=== PATIENT | female | born 2000 | race American Indian/Alaskan Native ===

== ENCOUNTER 2020-03-16 19:29 | Outpatient (CLI) | payer OTHER ==
[2020-03-16 19:43] VITALS: BP 120/69
[2020-03-16 20:14] LABS: Bacteria,Urine 1+ /HPF (Negative); Bilirubin,Urine SM (Negative); Blood,Urine NEG (Negative); Color,Urine Amber (Yellow); Mucus,Urine 3+ /HPF
[2020-03-16] MEDS ORDERED: DOCUSATE SODIUM 100 MG CAP PO ONE (21:28)
== END 2020-03-16 20:32 | disposition home or self-care (01) ==
LOC: TRG 19:29 → APU 19:30 → TRG 20:32
PROVIDERS: ATTEND Obstetrics & Gynecology
DX: O26.893 Other specified pregnancy related conditions, third trimester (principal); R10.2 Pelvic and perineal pain; Z3A.35 35 weeks gestation of pregnancy
CPT/HCPCS: 59025; 81001

== ENCOUNTER 2020-04-07 15:08 | Inpatient (IN) | payer OTHER ==
[2020-04-07] MEDS ORDERED: DINOPROSTONE 10 MG VAG SUPP VG ONE (17:45)
[2020-04-07] MEDS ORDERED: TERBUTALINE 1 MG/1 ML INJ IVP PRN (17:58)
[2020-04-07] MEDS ORDERED: MINERAL OIL 30 ML ORAL LIQD PO PRN (17:58)
[2020-04-07] MEDS ORDERED: LIDOCAINE (2%) 20 MG/1 ML VIAL 20 ML MDV INFILTRATI ONE (17:58)
[2020-04-07] MEDS ORDERED: TERBUTALINE 1 MG/1 ML INJ SUB-Q PRN (17:58)
[2020-04-07] MEDS ORDERED: AMPICILLIN/NS 2 GM/100 ML 2 GM/100 ML BAG IV ONE (17:58)
[2020-04-07] MEDS ORDERED: ePHEDrine SULFATE 50 MG/1 ML INJ IV PRN (17:58)
[2020-04-07] MEDS ORDERED: OXYTOCIN 20 UNIT/1000ML DRIP 20 UNITS/1,000 ML BAG IV SCH (18:00)
--- NOTE | 2020-04-07 18:07 | History and Physical Report ---
History of Present Illness Date of examination: 04/07/20 Date of admission: 04/07/20 15:08 Chief complaint: IOL History of present illness: 19y/o @ 38+2 weeks presents for IOL for mild preeclampsia. Patient had a 24hr urine protein with elevated levels of 434mg. She has been experiencing labile blood pressures. The patient initiated care in the first trimester. Her course is complicated by STD exposure and +GBS. Past History Past Medical History: no pertinent history Past Surgical History: no surgical history [employer] History: chlamydia Social history: single - Obstetrical History Expected Date of Delivery: 04/19/20 Actual Gestation: 38 Week(s) 2 Day(s) : 1 Para: 0 Hx # Term Pregnancies: 0 Number of Pregnancies: 0 Spontaneous Abortions: 0 Induced : 0 Number of Living Children: 0 Medications and Allergies Allergies Allergy/AdvReac Type Severity Reaction Status Date / Time No Known Allergies Allergy Unverified 02/06/20 11:38 Home Medications Medication Instructions Recorded Confirmed Last Taken Type Vitamin 1 tab PO DAILY 04/07/20 04/07/20 04/06/20 History Active Meds: Active Medications Butorphanol Tartrate (Stadol) 2 mg IV Q2H PRN PRN Reason: Pain , Severe (7-10) Ephedrine Sulfate (Ephedrine Sulfate) 10 mg IV Q2M PRN PRN Reason: Hypotension Oxytocin/Sodium Chloride (Pitocin/Ns 20 Unit/1000ml Drip) 20 units in 1,000 mls @ 125 mls/hr IV DIRECT GENE Oxytocin/Sodium Chloride (Pitocin/Ns 30 Unit/500ml) 30 units in 500 mls @ 4 mls/hr IV TITR GENE; Protocol Lactated Ringer's (Lactated Ringers) 1,000 mls @ 125 mls/hr IV DIRECT GENE Ampicillin Sodium (Ampicillin/Ns 1 Gm/50 Ml) 1 gm in 50 mls @ 100 mls/hr IV Q4HR GENE; Protocol Ampicillin Sodium (Ampicillin/Ns 2 Gm/100 Ml) 2 gm in 100 mls @ 100 mls/hr IV ONCE ONE; Protocol Stop: 04/07/20 18:57 Lidocaine (Xylocaine 2%) 20 ml INFILTRATI ONCE ONE Stop: 04/07/20 17:59 Mineral Oil (Mineral Oil) 30 ml PO QHS PRN PRN Reason: Constipation Misoprostol (Cytotec) 25 mcg VAGINAL Q4H GENE Terbutaline Sulfate (Brethine) 0.25 mg SUB-Q ONCE PRN PRN Reason: Hyperstimulation/Hypertonicity Terbutaline Sulfate (Brethine) 0.25 mg IVP ONCE PRN PRN Reason: Hyperstimulation/Hypertonicity Review of Systems All systems: negative Genitourinary: no leakage of fluid, no contractions - Vital Signs Vital signs: Vital Signs Temp Pulse Resp BP 98.0 F 107 H 16 139/79 04/07/20 15:35 04/07/20 15:35 04/07/20 15:35 04/07/20 15:35 Temp Pulse Resp BP Pulse Ox 98.0 F 109 H 16 127/57 100 04/07/20 15:35 04/07/20 18:01 04/07/20 15:35 04/07/20 18:01 04/07/20 17:59 - Physical Exam Breasts: Positive: deferred Cardiovascular: Regular rate Lungs: Positive: Clear to auscultation Abdomen: Positive: normal appearance - Obstetrical Cervical Dilatation: 0.5 Results All other labs normal. Assessment and Plan - Patient Problems (1) Mild preeclampsia Current Visit: Yes Status: Acute Plan to address problem: admit for induction of labor
[2020-04-07 19:14] LABS: Hematocrit 34.5 % (30.3-42.9); Hemoglobin 11.6 gm/dl (10.1-14.3); Mean Corpuscular HGB Conc 34 % (30-34); Mean Corpuscular Volume 96 fl (79-97); Platelet Count 175 K/mm3 (140-440); Red Blood Count 3.59 M/mm3 (3.65-5.03)
[2020-04-07 19:42] LABS: Alanine Aminotransferase 23 units/L (7-56); Albumin 3.9 g/dL (3.9-5); BUN/Creatinine Ratio 18; Blood Urea Nitrogen 7 mg/dL (7-17); Calcium 9.9 mg/dL (8.4-10.2); Hemolysis Index 42; Uric Acid 4.2 mg/dL (3.5-7.6)
[2020-04-07] MEDS: miSOPROStol 25 MCG TAB VG SCH (20:35)
[2020-04-07] MEDS: LACTATED RINGERS 1,000 ML IV SCH (20:35)
[2020-04-08] MEDS: miSOPROStol 25 MCG TAB VG SCH ×3 (00:35→09:00)
[2020-04-08] MEDS: LACTATED RINGERS 1,000 ML IV SCH ×2 (04:35→18:51)
--- NOTE | 2020-04-08 08:13 | Progress Note ---
Assessment and Plan A: IUP at 38w3d Mild Preeclampsia Obesity P: Continue induction of labor Closely monitor clinical status Subjective - Subjective Date of service: 04/08/20 Principal diagnosis: induction of labor for mild preeclampsia at term Interval history: Pt without complaints. No PIH symptoms. Patient reports: no new complaints Objective - Vital Signs Vital Signs: Vital Signs - 12hr 04/07/20 04/07/20 04/07/20 20:16 20:17 20:22 Temperature Pulse Rate 93 H 93 H 93 H Respiratory Rate Blood Pressure 114/56 O2 Sat by Pulse 98 98 Oximetry 04/07/20 04/07/20 04/07/20 20:27 20:29 20:32 Temperature Pulse Rate 95 H 96 H Respiratory Rate Blood Pressure O2 Sat by Pulse 99 69 L 100 Oximetry 04/07/20 04/07/20 04/07/20 20:37 20:42 20:47 Temperature Pulse Rate 98 H 93 H 98 H Respiratory Rate Blood Pressure O2 Sat by Pulse 100 100 97 Oximetry 04/07/20 04/07/20 04/07/20 20:52 20:57 21:02 Temperature Pulse Rate 94 H 94 H 94 H Respiratory Rate Blood Pressure O2 Sat by Pulse 100 97 98 Oximetry 04/07/20 04/07/20 04/07/20 21:07 21:12 21:17 Temperature Pulse Rate 94 H 95 H 93 H Respiratory Rate Blood Pressure O2 Sat by Pulse 97 97 99 Oximetry 04/07/20 04/07/20 04/07/20 21:18 21:22 21:27 Temperature Pulse Rate 89 96 H 97 H Respiratory Rate Blood Pressure 120/61 O2 Sat by Pulse 99 98 Oximetry 04/07/20 04/07/20 04/07/20 21:32 21:37 21:42 Temperature Pulse Rate 95 H 94 H 94 H Respiratory Rate Blood Pressure O2 Sat by Pulse 99 98 99 Oximetry 04/07/20 04/07/20 04/07/20 21:47 21:52 21:57 Temperature Pulse Rate 87 97 H 89 Respiratory Rate Blood Pressure O2 Sat by Pulse 97 99 98 Oximetry 04/07/20 04/07/20 04/07/20 22:02 22:07 22:12 Temperature Pulse Rate 95 H 95 H 92 H Respiratory Rate Blood Pressure O2 Sat by Pulse 98 98 97 Oximetry 04/07/20 04/07/20 04/07/20 22:17 22:18 22:22 Temperature Pulse Rate 102 H 94 H 87 Respiratory Rate Blood Pressure 117/69 O2 Sat by Pulse 98 98 Oximetry 04/07/20 04/07/20 04/07/20 22:27 22:32 22:37 Temperature Pulse Rate 88 98 H 91 H Respiratory Rate Blood Pressure O2 Sat by Pulse 98 98 97 Oximetry 04/07/20 04/07/20 04/07/20 22:42 22:47 22:52 Temperature Pulse Rate 92 H 94 H 93 H Respiratory Rate Blood Pressure O2 Sat by Pulse 97 98 97 Oximetry 04/07/20 04/07/20 04/07/20 22:57 23:02 23:07 Temperature Pulse Rate 84 89 96 H Respiratory Rate Blood Pressure O2 Sat by Pulse 98 96 97 Oximetry 04/07/20 04/07/20 04/07/20 23:12 23:17 23:22 Temperature Pulse Rate 88 88 85 Respiratory Rate Blood Pressure 118/61 O2 Sat by Pulse 97 96 99 Oximetry 04/07/20 04/07/20 04/07/20 23:27 23:32 23:37 Temperature Pulse Rate 93 H 89 85 Respiratory Rate Blood Pressure O2 Sat by Pulse 97 99 98 Oximetry 04/07/20 04/07/20 04/07/20 23:42 23:47 23:52 Temperature Pulse Rate 86 81 78 Respiratory Rate Blood Pressure O2 Sat by Pulse 100 94 100 Oximetry 04/07/20 04/08/20 04/08/20 23:57 00:02 00:07 Temperature Pulse Rate 75 80 85 Respiratory Rate Blood Pressure O2 Sat by Pulse 99 99 98 Oximetry 04/08/20 04/08/20 04/08/20 00:12 00:17 00:22 Temperature Pulse Rate 84 83 79 Respiratory Rate Blood Pressure 109/50 O2 Sat by Pulse 97 98 99 Oximetry 04/08/20 04/08/20 04/08/20 00:25 00:27 00:32 Temperature 98.3 F Pulse Rate 84 89 Respiratory 18 Rate Blood Pressure O2 Sat by Pulse 96 100 Oximetry 04/08/20 04/08/20 04/08/20 00:37 00:42 00:47 Temperature Pulse Rate 89 84 84 Respiratory Rate Blood Pressure O2 Sat by Pulse 99 100 99 Oximetry 04/08/20 04/08/20 04/08/20 00:52 00:57 01:02 Temperature Pulse Rate 83 76 82 Respiratory Rate Blood Pressure O2 Sat by Pulse 96 97 99 Oximetry 04/08/20 04/08/20 04/08/20 01:07 01:12 01:17 Temperature Pulse Rate 84 76 84 Respiratory Rate Blood Pressure O2 Sat by Pulse 100 100 100 Oximetry 04/08/20 04/08/20 04/08/20 01:19 01:22 01:27 Temperature Pulse Rate 87 84 82 Respiratory Rate Blood Pressure 117/63 O2 Sat by Pulse 100 100 Oximetry 04/08/20 04/08/20 04/08/20 01:32 01:37 01:42 Temperature Pulse Rate 82 90 90 Respiratory Rate Blood Pressure O2 Sat by Pulse 100 100 100 Oximetry 04/08/20 04/08/20 04/08/20 01:47 01:52 01:57 Temperature Pulse Rate 87 85 82 Respiratory Rate Blood Pressure O2 Sat by Pulse 100 100 100 Oximetry 04/08/20 04/08/20 04/08/20 02:02 02:07 02:12 Temperature Pulse Rate 84 79 86 Respiratory Rate Blood Pressure O2 Sat by Pulse 100 100 100 Oximetry 04/08/20 04/08/20 04/08/20 02:17 02:18 02:22 Temperature Pulse Rate 88 98 H 82 Respiratory Rate Blood Pressure 108/58 O2 Sat by Pulse 100 100 Oximetry 04/08/20 04/08/20 04/08/20 02:27 02:32 02:37 Temperature Pulse Rate 80 78 85 Respiratory Rate Blood Pressure O2 Sat by Pulse 100 100 100 Oximetry 04/08/20 04/08/20 04/08/20 02:42 02:47 02:52 Temperature Pulse Rate 86 89 79 Respiratory Rate Blood Pressure O2 Sat by Pulse 100 100 100 Oximetry 04/08/20 04/08/20 04/08/20 02:57 03:02 03:07 Temperature Pulse Rate 83 86 94 H Respiratory Rate Blood Pressure O2 Sat by Pulse 100 100 100 Oximetry 04/08/20 04/08/20 04/08/20 03:12 03:17 03:18 Temperature Pulse Rate 87 89 99 H Respiratory Rate Blood Pressure 114/58 O2 Sat by Pulse 100 100 Oximetry 04/08/20 04/08/20 04/08/20 03:22 03:27 03:32 Temperature Pulse Rate 92 H 93 H 83 Respiratory Rate Blood Pressure O2 Sat by Pulse 100 100 100 Oximetry 04/08/20 04/08/20 04/08/20 03:37 03:42 03:44 Temperature Pulse Rate 80 85 Respiratory Rate Blood Pressure O2 Sat by Pulse 99 100 89 Oximetry 04/08/20 04/08/20 04/08/20 03:51 03:56 03:59 Temperature 98.6 F Pulse Rate 89 88 Respiratory 18 Rate Blood Pressure O2 Sat by Pulse 100 98 Oximetry 04/08/20 04/08/20 04/08/20 04:01 04:06 04:11 Temperature Pulse Rate 85 80 86 Respiratory Rate Blood Pressure O2 Sat by Pulse 98 99 100 Oximetry 04/08/20 04/08/20 04/08/20 04:16 04:17 04:21 Temperature Pulse Rate 74 73 84 Respiratory Rate Blood Pressure 107/57 O2 Sat by Pulse 99 100 Oximetry 04/08/20 04/08/20 04/08/20 04:26 04:31 04:36 Temperature Pulse Rate 88 69 72 Respiratory Rate Blood Pressure O2 Sat by Pulse 99 97 99 Oximetry 04/08/20 04/08/20 04/08/20 04:41 04:46 04:51 Temperature Pulse Rate 73 76 91 H Respiratory Rate Blood Pressure O2 Sat by Pulse 99 97 98 Oximetry 04/08/20 04/08/20 04/08/20 04:56 05:01 05:06 Temperature Pulse Rate 84 76 70 Respiratory Rate Blood Pressure O2 Sat by Pulse 98 96 99 Oximetry 04/08/20 04/08/20 04/08/20 05:11 05:16 05:21 Temperature Pulse Rate 93 H 85 81 Respiratory Rate Blood Pressure O2 Sat by Pulse 100 100 98 Oximetry 04/08/20 04/08/20 04/08/20 05:26 05:31 05:36 Temperature Pulse Rate 70 75 81 Respiratory Rate Blood Pressure O2 Sat by Pulse 99 99 100 Oximetry 04/08/20 04/08/20 04/08/20 05:41 05:46 05:51 Temperature Pulse Rate 87 84 Respiratory Rate Blood Pressure O2 Sat by Pulse 100 100 100 Oximetry 04/08/20 04/08/20 04/08/20 05:56 06:01 06:06 Temperature Pulse Rate 87 82 76 Respiratory Rate Blood Pressure O2 Sat by Pulse 100 100 100 Oximetry 04/08/20 04/08/20 04/08/20 06:11 06:16 06:18 Temperature Pulse Rate 81 96 H 85 Respiratory Rate Blood Pressure 109/60 O2 Sat by Pulse 100 100 Oximetry 04/08/20 04/08/20 04/08/20 06:21 06:26 06:31 Temperature Pulse Rate 78 83 83 Respiratory Rate Blood Pressure O2 Sat by Pulse 100 100 100 Oximetry 04/08/20 04/08/20 04/08/20 06:36 06:41 06:46 Temperature Pulse Rate 80 90 79 Respiratory Rate Blood Pressure O2 Sat by Pulse 99 99 99 Oximetry 04/08/20 04/08/20 04/08/20 06:51 06:56 07:01 Temperature Pulse Rate 83 83 90 Respiratory Rate Blood Pressure O2 Sat by Pulse 100 100 99 Oximetry 04/08/20 04/08/20 04/08/20 07:06 07:11 07:16 Temperature Pulse Rate 92 H 95 H 91 H Respiratory Rate Blood Pressure O2 Sat by Pulse 100 100 98 Oximetry 04/08/20 04/08/20 04/08/20 07:19 07:21 07:26 Temperature Pulse Rate 86 96 H 87 Respiratory Rate Blood Pressure 126/58 O2 Sat by Pulse 97 99 Oximetry 04/08/20 04/08/20 04/08/20 07:31 07:36 07:41 Temperature Pulse Rate 90 77 83 Respiratory Rate Blood Pressure O2 Sat by Pulse 98 98 98 Oximetry 04/08/20 04/08/20 04/08/20 07:46 07:51 07:56 Temperature Pulse Rate 79 78 66 Respiratory Rate Blood Pressure O2 Sat by Pulse 98 97 99 Oximetry 04/08/20 04/08/20 08:02 08:07 Temperature Pulse Rate 113 H 90 Respiratory Rate Blood Pressure O2 Sat by Pulse 100 100 Oximetry - Exam Breasts: deferred Abdomen: Present: soft (gravid ) Uterus: Present: normal (gravid ) FHR: auscultation normal Uterine Contraction Monitor Mode: External Cervical Dilatation: 1 (per RN ) Uterine Contraction Pattern: Irregular Uterine Tone Measurement Phase: Resting Uterine Contraction Intensity: Mild Extremities: edema (trace) - Labs Labs: Abnormal Labs 04/07/20 04/07/20 16:30 16:30 RBC 3.59 L RDW 13.0 L Sodium 136 L Chloride 97.9 L Carbon Dioxide 20 L Creatinine 0.4 L Glucose 114 H Alkaline Phosphatase 163 H Laboratory Results - last 24 hr 04/07/20 04/07/20 04/07/20 16:30 16:30 16:30 WBC 7.2 RBC 3.59 L Hgb 11.6 Hct 34.5 MCV 96 MCH 32 MCHC 34 RDW 13.0 L Plt Count 175 Sodium 136 L Potassium 3.9 Chloride 97.9 L Carbon Dioxide 20 L Anion Gap 22 BUN 7 Creatinine 0.4 L Estimated GFR > 60 BUN/Creatinine Ratio 18 Glucose 114 H Uric Acid 4.2 Calcium 9.9 Total Bilirubin 0.30 AST 23 ALT 23 Alkaline Phosphatase 163 H Total Protein 6.6 Albumin 3.9 Albumin/Globulin Ratio 1.4 Blood Type AB POSITIVE Antibody Screen Negative
[2020-04-08] MEDS ORDERED: AMPICILLIN/NS 2 GM/100 ML 2 GM/100 ML BAG IV ONE (09:00)
[2020-04-08] MEDS: OXYTOCIN DRIP 30 UNITS/500 ML BAG IV SCH ×2 (14:47→18:50)
[2020-04-08] MEDS: BUTORPHANOL 2 MG/1 ML INJ IV PRN ×3 (15:04→22:45)
[2020-04-08] MEDS: AMPICILLIN/NS 1 GM/50 ML 1 GM/50 ML BAG IV SCH ×3 (15:10→22:13)
[2020-04-09] MEDS: LACTATED RINGERS 1,000 ML IV SCH ×2 (03:00→12:48)
[2020-04-09] MEDS: AMPICILLIN/NS 1 GM/50 ML 1 GM/50 ML BAG IV SCH ×4 (03:31→13:57)
[2020-04-09] MEDS: BUTORPHANOL 2 MG/1 ML INJ IV PRN ×3 (05:08→13:55)
--- NOTE | 2020-04-09 08:01 | Progress Note ---
Assessment and Plan A: 19 yo at 38w4d EGA Preeclampsia without severe features HD3 of IOL GBS positive Membranes ruptured x6 hours P: Continue IOL- Pitocin R/b/a of IUPC placement discussed including risk of bleeding and infection. Pt expresses consent. IUPC placed in sterile fashion with no bloody flashback, tracing well. Ampicillin prophylaxis Anticipate Subjective - Subjective Date of service: 04/09/20 Principal diagnosis: induction of labor for mild preeclampsia at term Interval history: Pt is a 19 yo at 38w4d, hospital day 3 for IOL for preeclampsia with mild features. S/p Cytotec, currently on Pitocin. SROM at 0200 today. Patient reports: loss of fluid, movement normal, contractions, other (denies CLIFFORD, scotomata, RUQ pain.), no new complaints Objective - Vital Signs Vital Signs: Vital Signs - 12hr 04/08/20 04/08/20 04/08/20 20:06 20:11 20:15 Temperature Pulse Rate 84 86 Respiratory Rate Blood Pressure Blood Pressure [Right] O2 Sat by Pulse 100 99 81 L Oximetry 04/08/20 04/08/20 04/08/20 20:16 20:18 20:20 Temperature Pulse Rate 70 76 95 H Respiratory Rate Blood Pressure 135/87 Blood Pressure [Right] O2 Sat by Pulse 100 70 L Oximetry 04/08/20 04/08/20 04/08/20 20:21 20:26 20:31 Temperature Pulse Rate 88 75 82 Respiratory Rate Blood Pressure Blood Pressure [Right] O2 Sat by Pulse 99 99 98 Oximetry 04/08/20 04/08/20 04/08/20 20:36 20:41 20:46 Temperature Pulse Rate 94 H 86 79 Respiratory Rate Blood Pressure Blood Pressure [Right] O2 Sat by Pulse 98 99 98 Oximetry 04/08/20 04/08/20 04/08/20 20:51 20:56 21:01 Temperature Pulse Rate 88 85 90 Respiratory Rate Blood Pressure Blood Pressure [Right] O2 Sat by Pulse 98 98 98 Oximetry 04/08/20 04/08/20 04/08/20 21:06 21:11 21:16 Temperature Pulse Rate 76 97 H 106 H Respiratory Rate Blood Pressure Blood Pressure [Right] O2 Sat by Pulse 98 98 98 Oximetry 04/08/20 04/08/20 04/08/20 21:21 21:26 21:31 Temperature Pulse Rate 76 81 84 Respiratory Rate Blood Pressure 132/74 Blood Pressure [Right] O2 Sat by Pulse 98 97 97 Oximetry 04/08/20 04/08/20 04/08/20 21:36 21:41 21:46 Temperature Pulse Rate 86 87 80 Respiratory Rate Blood Pressure Blood Pressure [Right] O2 Sat by Pulse 96 98 97 Oximetry 04/08/20 04/08/20 04/08/20 21:51 21:56 22:01 Temperature Pulse Rate 83 86 85 Respiratory Rate Blood Pressure Blood Pressure [Right] O2 Sat by Pulse 98 98 98 Oximetry 04/08/20 04/08/20 04/08/20 22:06 22:11 22:16 Temperature Pulse Rate 84 85 89 Respiratory Rate Blood Pressure Blood Pressure [Right] O2 Sat by Pulse 99 98 98 Oximetry 04/08/20 04/08/20 04/08/20 22:17 22:21 22:26 Temperature Pulse Rate 88 81 81 Respiratory Rate Blood Pressure 130/77 Blood Pressure [Right] O2 Sat by Pulse 97 99 Oximetry 04/08/20 04/08/20 04/08/20 22:31 22:36 22:41 Temperature Pulse Rate 74 76 79 Respiratory Rate Blood Pressure Blood Pressure [Right] O2 Sat by Pulse 100 99 99 Oximetry 04/08/20 04/08/20 04/08/20 22:46 22:51 22:56 Temperature Pulse Rate 87 80 78 Respiratory Rate Blood Pressure Blood Pressure [Right] O2 Sat by Pulse 98 96 96 Oximetry 04/08/20 04/08/20 04/08/20 23:01 23:06 23:11 Temperature Pulse Rate 83 86 85 Respiratory Rate Blood Pressure Blood Pressure [Right] O2 Sat by Pulse 97 97 98 Oximetry 04/08/20 04/08/20 04/08/20 23:16 23:18 23:21 Temperature Pulse Rate 82 83 74 Respiratory Rate Blood Pressure 117/57 Blood Pressure [Right] O2 Sat by Pulse 96 97 Oximetry 04/08/20 04/08/20 04/08/20 23:26 23:31 23:36 Temperature Pulse Rate 82 92 H 87 Respiratory Rate Blood Pressure Blood Pressure [Right] O2 Sat by Pulse 97 97 97 Oximetry 04/08/20 04/08/20 04/08/20 23:41 23:46 23:51 Temperature Pulse Rate 81 94 H 89 Respiratory Rate Blood Pressure Blood Pressure [Right] O2 Sat by Pulse 98 97 99 Oximetry 04/08/20 04/09/20 04/09/20 23:56 00:00 00:01 Temperature 98.4 F Pulse Rate 90 101 H Respiratory Rate Blood Pressure Blood Pressure [Right] O2 Sat by Pulse 98 99 Oximetry 04/09/20 04/09/20 04/09/20 00:06 00:11 00:16 Temperature Pulse Rate 85 90 80 Respiratory Rate Blood Pressure Blood Pressure [Right] O2 Sat by Pulse 97 97 95 Oximetry 04/09/20 04/09/20 04/09/20 00:18 00:21 00:26 Temperature Pulse Rate 75 82 80 Respiratory Rate Blood Pressure 105/53 Blood Pressure [Right] O2 Sat by Pulse 98 99 Oximetry 04/09/20 04/09/20 04/09/20 00:31 00:36 00:41 Temperature Pulse Rate 96 H 93 H 87 Respiratory Rate Blood Pressure Blood Pressure [Right] O2 Sat by Pulse 98 97 95 Oximetry 04/09/20 04/09/20 04/09/20 00:46 00:51 00:56 Temperature Pulse Rate 80 73 82 Respiratory Rate Blood Pressure Blood Pressure [Right] O2 Sat by Pulse 95 97 96 Oximetry 04/09/20 04/09/20 04/09/20 01:01 01:06 01:11 Temperature Pulse Rate 80 80 83 Respiratory Rate Blood Pressure Blood Pressure [Right] O2 Sat by Pulse 96 97 99 Oximetry 04/09/20 04/09/20 04/09/20 01:16 01:19 01:21 Temperature Pulse Rate 86 88 85 Respiratory Rate Blood Pressure 129/70 Blood Pressure [Right] O2 Sat by Pulse 97 97 Oximetry 04/09/20 04/09/20 04/09/20 01:26 01:31 01:36 Temperature Pulse Rate 92 H 95 H 94 H Respiratory Rate Blood Pressure Blood Pressure [Right] O2 Sat by Pulse 96 97 99 Oximetry 04/09/20 04/09/20 04/09/20 01:45 01:50 01:55 Temperature Pulse Rate 99 H 91 H 84 Respiratory Rate Blood Pressure Blood Pressure [Right] O2 Sat by Pulse 97 97 98 Oximetry 04/09/20 04/09/20 04/09/20 02:00 02:05 02:10 Temperature Pulse Rate 85 87 87 Respiratory Rate Blood Pressure Blood Pressure [Right] O2 Sat by Pulse 97 97 95 Oximetry 04/09/20 04/09/20 04/09/20 02:15 02:18 02:20 Temperature Pulse Rate 89 88 89 Respiratory Rate Blood Pressure 125/76 Blood Pressure [Right] O2 Sat by Pulse 98 98 Oximetry 04/09/20 04/09/20 04/09/20 02:25 02:30 02:36 Temperature Pulse Rate 86 91 H 109 H Respiratory Rate Blood Pressure Blood Pressure [Right] O2 Sat by Pulse 96 97 97 Oximetry 04/09/20 04/09/20 04/09/20 02:41 02:46 02:51 Temperature Pulse Rate 87 93 H 90 Respiratory Rate Blood Pressure Blood Pressure [Right] O2 Sat by Pulse 92 100 100 Oximetry 04/09/20 04/09/20 04/09/20 02:56 03:01 03:06 Temperature Pulse Rate 83 79 92 H Respiratory Rate Blood Pressure Blood Pressure [Right] O2 Sat by Pulse 100 100 99 Oximetry 04/09/20 04/09/20 04/09/20 03:11 03:16 03:21 Temperature Pulse Rate 89 89 88 Respiratory Rate Blood Pressure Blood Pressure [Right] O2 Sat by Pulse 99 98 99 Oximetry 04/09/20 04/09/20 04/09/20 03:26 03:31 03:36 Temperature Pulse Rate 83 83 89 Respiratory Rate Blood Pressure Blood Pressure [Right] O2 Sat by Pulse 99 99 99 Oximetry 04/09/20 04/09/20 04/09/20 03:41 03:46 03:51 Temperature Pulse Rate 79 86 87 Respiratory Rate Blood Pressure Blood Pressure [Right] O2 Sat by Pulse 98 98 100 Oximetry 04/09/20 04/09/20 04/09/20 03:56 04:00 04:01 Temperature 98.5 F Pulse Rate 80 82 Respiratory Rate Blood Pressure Blood Pressure [Right] O2 Sat by Pulse 98 100 Oximetry 04/09/20 04/09/20 04/09/20 04:06 04:11 04:16 Temperature Pulse Rate 89 83 88 Respiratory Rate Blood Pressure 124/63 Blood Pressure [Right] O2 Sat by Pulse 99 99 100 Oximetry 04/09/20 04/09/20 04/09/20 04:17 04:21 04:27 Temperature Pulse Rate 81 79 81 Respiratory Rate Blood Pressure 133/64 Blood Pressure [Right] O2 Sat by Pulse 98 98 Oximetry 04/09/20 04/09/20 04/09/20 04:32 04:37 04:42 Temperature Pulse Rate 75 94 H 80 Respiratory Rate Blood Pressure Blood Pressure [Right] O2 Sat by Pulse 96 97 96 Oximetry 04/09/20 04/09/20 04/09/20 04:47 04:52 04:57 Temperature Pulse Rate 87 85 84 Respiratory Rate Blood Pressure Blood Pressure [Right] O2 Sat by Pulse 96 97 98 Oximetry 04/09/20 04/09/20 04/09/20 05:02 05:08 05:13 Temperature Pulse Rate 89 80 83 Respiratory Rate Blood Pressure Blood Pressure [Right] O2 Sat by Pulse 97 97 95 Oximetry 04/09/20 04/09/20 04/09/20 05:18 06:15 06:18 Temperature 98.6 F Pulse Rate 85 80 Respiratory Rate Blood Pressure 127/64 112/59 Blood Pressure [Right] O2 Sat by Pulse Oximetry 04/09/20 04/09/20 04/09/20 06:31 06:36 06:41 Temperature Pulse Rate 87 75 64 Respiratory Rate Blood Pressure Blood Pressure [Right] O2 Sat by Pulse 100 99 100 Oximetry 04/09/20 04/09/20 04/09/20 06:46 06:51 06:56 Temperature Pulse Rate 85 81 78 Respiratory Rate Blood Pressure Blood Pressure [Right] O2 Sat by Pulse 100 100 100 Oximetry 04/09/20 04/09/20 04/09/20 07:01 07:06 07:07 Temperature 98.4 F Pulse Rate 86 85 74 Respiratory 16 Rate Blood Pressure 133/81 Blood Pressure 133/81 [Right] O2 Sat by Pulse 100 100 Oximetry 04/09/20 04/09/20 04/09/20 07:11 07:16 07:17 Temperature Pulse Rate 74 85 83 Respiratory Rate Blood Pressure 137/76 Blood Pressure [Right] O2 Sat by Pulse 100 100 Oximetry 04/09/20 04/09/20 04/09/20 07:21 07:26 07:31 Temperature Pulse Rate 85 86 Respiratory Rate Blood Pressure Blood Pressure [Right] O2 Sat by Pulse 97 100 100 Oximetry 04/09/20 04/09/20 04/09/20 07:36 07:41 07:46 Temperature Pulse Rate 71 81 79 Respiratory Rate Blood Pressure Blood Pressure [Right] O2 Sat by Pulse 98 98 98 Oximetry 04/09/20 04/09/20 07:51 07:56 Temperature Pulse Rate 85 64 Respiratory Rate Blood Pressure Blood Pressure [Right] O2 Sat by Pulse 100 100 Oximetry - Exam Lungs: Normal air movement Abdomen: Present: soft. Absent: distention Uterus: Present: firm FHR: category 1 (early decelerations with quick return to baseline) Uterine Contraction Monitor Mode: External Cervical Dilatation: 1.5 Cervical Effacement Percentage: 80 station: -3 Uterine Contraction Pattern: Regular Uterine Tone Measurement Phase: Contraction Uterine Contraction Intensity: Moderate - Labs Labs: Abnormal Labs 04/07/20 04/07/20 16:30 16:30 RBC 3.59 L RDW 13.0 L Sodium 136 L Chloride 97.9 L Carbon Dioxide 20 L Creatinine 0.4 L Glucose 114 H Alkaline Phosphatase 163 H
[2020-04-09 11:16] LABS: Hematocrit 36.4 % (30.3-42.9); Hemoglobin 12.3 gm/dl (10.1-14.3); Mean Corpuscular HGB Conc 34 % (30-34); Mean Corpuscular Volume 94 fl (79-97); Platelet Count 155 K/mm3 (140-440); Red Blood Count 3.87 M/mm3 (3.65-5.03); Red Cell Distribution Width 12.9 % (13.2-15.2)
[2020-04-09] MEDS ORDERED: BICITRA ORAL LIQD 30ML PO ONE (16:58)
[2020-04-09] MEDS ORDERED: FAMOTIDINE 20 MG/2 ML INJ IV ONE (16:58)
[2020-04-09] MEDS ORDERED: METOCLOPRAMIDE 10 MG/2 ML INJ IV ONE (16:58)
[2020-04-09] MEDS ORDERED: LACTATED RINGERS 1,000 ML IV SCH (17:00)
[2020-04-09] MEDS ORDERED: OXYTOCIN 20 UNIT/1000ML DRIP 20 UNITS/1,000 ML BAG IV SCH (17:00)
[2020-04-09] MEDS ORDERED: ceFAZolin/Water 2 GM/20 ML 2 GM/20 ML SYRINGE IV NR (17:00)
--- NOTE | 2020-04-09 17:03 | Event Note ---
Date: 04/09/20 19-year-old G1, P0 at 38+4 weeks who presents for induction of labor secondary to mild preeclampsia. The patient is on day 3 of her induction and has had minimal cervical change and currently remains 1 cm with rupture membranes. The patient has requested to undergo a primary . Will proceed with surgery.
--- NOTE | 2020-04-09 17:06 | Procedure Note ---
OB Delivery Note - Delivery Date of Delivery: 04/09/20 Surgeon: DARIN STEPHENSON Estimated blood loss: other (600 mL) - Section Preop diagnosis: other (Failed induction) Postop diagnosis: same section procedure: section, primary low transverse Disposition: PACU Complications: none - A at 1 minute: 8 at 5 minutes: 9 Infant Gender: Male (Weight 5 pounds 7 ounces)
--- NOTE | 2020-04-09 17:07 | Operative Report ---
Operative Report Operative Report: Date of surgery: April 09, 2020 Preoperative diagnosis: at 38+4 weeks; mild preeclampsia; failed ind uction Postoperative diagnosis: Same as above Procedure: Primary low transverse delivery Surgeon: Sairta Snyder M.D. Anesthesia: Regional Estimated blood loss: 600 mL IV fluids: 1000 mL Urine output: 150 mL Findings: Liveborn male infant with Apgars of 8 and 9 weight 5 pounds 10 ounces Indications: 19-year-old G1, P0 at 38+4 weeks who was admitted for induction of labor for mild preeclampsia. Her intrapartum course was complicated by failed induction with minimal cervical change despite adequate contractility. The patient was counseled for the primary delivery. Procedure: The patient was taken to the operating room and given regional anesthesia without complication. She was prepped and draped in a normal sterile fashion. A Pfannenstiel skin incision was made down to layer the fascia which was nicked in the midline extended laterally with the Bovie cautery. The superior aspect of the rectus fascia was grasped with [place] clamps x2 and the rectus muscles off sharply. This was done in inferior fashion as well. The rectus muscle midline and peritoneum entered bluntly. An Brad retractor was then inserted. A bladder blade was placed. The vesicouterine peritoneum was then entered sharply with Metzenbaum scissors. A bladder flap was created digitally. A low transverse uterine incision was then made and extended digitally. There was clear fluid upon entry into the uterine cavity. The head was delivered through the incision with fundal pressure. The cord was clamped and cut x2 and infant was passed off to pediatrics. The placenta was then manually extracted. The uterus was then exteriorized and cleared of clots and debris. The uterine incision was then closed in a running locked fashion with 0 Vicryl additional imbricating stitch was applied for 2 layer closure. The serosa was then reapproximated with 3-0 Vicryl. The posterior cul-de-sac was then copiously irrigated. The uterus was replaced back into the abdomen and pelvis were the gutters were then irrigated. The Brad retractor was then removed. The peritoneum was then reapproximated with 3-0 Vicryl incorporating the rectus muscle. The fascia was then closed with 0 Vicryl in a running fashion. The skin was then reapproximated with 3-0 Monocryl on a Carroll needle subcuticular fashion. Steri-Strips to place across the incision and a Crede procedures performed at the end of the surgery. A pressure dressing was applied to the incision. The surgery productive of a liveborn male infant with Apgars of 8 and 9 weight 5 pounds 10 ounces. The patient was taken to the recovery room in stable condition. All sponge laps and needle counts correct x2.
[2020-04-09] MEDS ORDERED: DEXMEDETOMIDINE 200 MCG/2 ML VIAL IV ONE (17:25)
[2020-04-09] MEDS ORDERED: HYDROmorphone 1 MG/1 ML INJ IV PRN (17:29)
[2020-04-09] MEDS ORDERED: NALOXONE 0.4 MG/1 ML INJ IV PRN (17:29)
[2020-04-09] MEDS ORDERED: ONDANSETRON 4 MG/2 ML INJ IV PRN (17:29)
--- NOTE | 2020-04-09 17:29 | Anesthesia Consultation ---
Anesthesia Consult and Med Hx Date of service: 04/09/20 - Airway Anesthetic Teeth Evaluation: Good ROM Head & Neck: Adequate Mental/Hyoid Distance: Adequate Mallampati Class: Class II Intubation Access Assessment: Probably Good - Pulmonary Exam CTA: Yes - Cardiac Exam Cardiac Exam: RRR - Pre-Operative Health Status ASA Pre-Surgery Classification: ASA2 Proposed Anesthetic Plan: Spinal - Pulmonary Hx Smoking: No Hx Asthma: No Hx Respiratory Symptoms: No SOB: No COPD: No Home Oxygen Therapy: No Hx Pneumonia: No Hx Sleep Apnea: No - Cardiovascular System Hx Hypertension: No Hx Coronary Artery Disease: No Hx Heart Attack/AMI: No Hx Angina: No Hx Percutaneous Transluminal Coronary Angioplasty (PTCA): No Hx Cardia Arrhythmia: No Hx Pacemaker: No Hx Internal Defibrillator: No Hx Valvular Heart Disease: No Hx Heart Murmur: No Hx Peripheral Vascular Disease: No - Central Nervous System Hx Neuromuscular Disorder: No Hx Seizures: No CVA: No Hx Back Pain: No Hx Psychiatric Problems: No - Gastrointestinal Hx Ulcer: No Hx Gastroesophageal Reflux Disease: No - Endocrine Hx Renal Disease: No Hx End Stage Renal Disease: No Hx Cirrhosis: No Hx Liver Disease: No Hx Insulin Dependent Diabetes: No Hx Non-Insulin Dependent Diabetes: No Hx Thyroid Disease: No Hx Hypothyroidism: No Hx Hyperthyroidism: No - Hematic Hx Anemia: No Hx Sickle Cell Disease: No - Other Systems Hx Alcohol Use: Yes Hx Substance Use: No Hx Cancer: No Hx Obesity: Yes
--- NOTE | 2020-04-09 17:29 | Anesthesia Day of Surgery ---
Anesthesia Day of Surgery - Day of Surgery Patient Examined: Yes Patient H&P Reviewed: Yes Patient is NPO: Yes Beta Blockers: No Cardiac Clearance: No Pulmonary Clearance: No Jean Pierre's Test: N/A
[2020-04-09] MEDS ORDERED: ONDANSETRON 4 MG/2 ML INJ ONE (17:38)
[2020-04-09] MEDS ORDERED: WATER FOR IRRIG STERILE 1,500 ML BOTTLE IR ONE (18:00)
[2020-04-09] MEDS ORDERED: ceFAZolin/STERILE WATER 2 GM/20 ML SYRINGE IV ONE (18:00)
[2020-04-09] MEDS ORDERED: SODIUM CHLORIDE 0.9% IRR 1,500 ML BOTTLE IR ONE (18:00)
[2020-04-09] MEDS ORDERED: MAGNESIUM SULFATE 4 GM/100 ML BAG IV ONE (18:37)
[2020-04-09] MEDS ORDERED: KETOROLAC 30 MG/1 ML INJ ONE (18:38)
[2020-04-09] MEDS: MAGNESIUM SULFATE 40GM/1000ML 40 GM/1,000 ML BAG IV SCH (20:00)
[2020-04-09] MEDS: KETOROLAC 30 MG/1 ML INJ IV PRN (21:56)
[2020-04-09] MEDS: oxyCODONE /ACETAMINOPHEN 5-325MG TAB PO PRN (23:06)
[2020-04-10] MEDS: oxyCODONE /ACETAMINOPHEN 5-325MG TAB PO PRN ×3 (03:08→17:19)
--- NOTE | 2020-04-10 08:22 | Progress Note ---
Assessment and Plan A: POD1 s/p LTCS Preeclampsia, on mag sulfate Awaiting pp H&H Normal to mild range BP Afebrile P: Continue mag sulfate x24 hours Close clinical monitoring Subjective - Subjective Date of service: 04/10/20 Principal diagnosis: s/p primary , preeclampsia Interval history: POD1 s/p primary for failed induction of labor. On magnesium sulfate for preeclampsia. Denies CLIFFORD/scotomata/RUQ pain Patient reports: appetite normal, pain well controlled, no flatus [place]: doing well, bottle feeding (attempting to breast feed) Objective - Vital Signs Latest vital signs: Vital Signs Temp Pulse Resp BP BP Pulse Ox 04/10/20 08:16 91 H 99 04/10/20 08:11 91 H 99 04/10/20 08:08 81 139/70 04/10/20 08:06 95 H 99 04/10/20 08:01 89 99 04/10/20 07:56 91 H 99 04/10/20 07:51 93 H 100 04/10/20 07:47 98.3 F 91 H 16 133/85 04/10/20 07:46 90 133/85 100 04/10/20 07:41 91 H 99 04/10/20 07:36 93 H 99 04/10/20 07:31 88 99 04/10/20 07:26 88 99 04/10/20 07:21 89 99 04/10/20 07:16 88 99 04/10/20 07:11 98 H 99 04/10/20 07:07 93 H 130/69 04/10/20 07:06 94 H 99 04/10/20 07:01 97 H 100 04/10/20 06:58 13 04/10/20 06:56 88 97 04/10/20 06:51 86 97 04/10/20 06:46 86 97 04/10/20 06:41 86 97 04/10/20 06:36 86 98 04/10/20 06:31 86 98 04/10/20 06:26 92 H 99 04/10/20 06:21 90 98 04/10/20 06:16 87 99 04/10/20 06:11 91 H 98 04/10/20 06:07 84 133/81 04/10/20 06:06 86 98 04/10/20 06:01 93 H 99 04/10/20 05:56 88 99 04/10/20 05:51 87 99 04/10/20 05:46 93 H 99 04/10/20 05:41 94 H 99 04/10/20 05:36 96 H 99 04/10/20 05:31 92 H 98 04/10/20 05:26 95 H 99 04/10/20 05:21 92 H 99 04/10/20 05:16 89 99 04/10/20 05:11 89 98 04/10/20 05:07 100 H 145/68 04/10/20 05:06 104 H 100 04/10/20 05:02 98.6 F 04/10/20 05:01 102 H 100 04/10/20 05:00 14 04/10/20 04:56 96 H 99 04/10/20 04:51 101 H 98 04/10/20 04:46 90 98 04/10/20 04:41 87 98 04/10/20 04:36 90 98 04/10/20 04:31 102 H 99 04/10/20 04:26 90 98 04/10/20 04:21 93 H 98 04/10/20 04:16 93 H 98 04/10/20 04:11 94 H 99 04/10/20 04:08 104 H 15 154/70 04/10/20 04:06 91 H 98 04/10/20 04:01 92 H 97 04/10/20 03:56 96 H 98 04/10/20 03:51 94 H 99 04/10/20 03:46 92 H 98 04/10/20 03:41 88 98 04/10/20 03:36 97 H 98 04/10/20 03:31 92 H 98 04/10/20 03:26 94 H 99 04/10/20 03:21 93 H 98 04/10/20 03:16 87 97 04/10/20 03:11 99 H 98 04/10/20 03:08 18 04/10/20 03:07 93 H 134/77 04/10/20 03:06 99 H 100 04/10/20 03:01 93 H 100 04/10/20 02:56 89 99 04/10/20 02:51 89 100 04/10/20 02:46 96 H 98 04/10/20 02:41 86 97 04/10/20 02:36 85 98 06/25/20 02:31 85 98 04/10/20 02:26 96 H 99 04/10/20 02:21 91 H 98 04/10/20 02:19 98 H 123/86 04/10/20 02:16 101 H 98 04/10/20 02:11 111 H 99 04/10/20 02:06 92 H 98 04/10/20 02:01 85 98 04/10/20 01:56 91 H 98 04/10/20 01:51 101 H 99 04/10/20 01:49 107 H 135/87 04/10/20 01:46 95 H 100 04/10/20 01:41 90 100 04/10/20 01:36 96 H 100 04/10/20 01:25 105 H 99 04/10/20 01:20 98 H 98 04/10/20 01:19 100 H 124/68 04/10/20 01:15 93 H 98 04/10/20 01:10 95 H 99 04/10/20 01:05 91 H 98 04/10/20 00:59 102 H 97 04/10/20 00:54 96 H 97 04/10/20 00:49 97 H 138/71 98 04/10/20 00:44 92 H 98 04/10/20 00:39 92 H 98 04/10/20 00:34 90 98 04/10/20 00:29 88 98 04/10/20 00:24 91 H 98 04/10/20 00:19 92 H 130/69 99 04/10/20 00:14 100 H 97 04/10/20 00:09 80 97 04/10/20 00:04 80 98 04/09/20 23:59 82 99 20 23:54 79 98 2420 23:49 78 126/80 99 2420 23:44 75 98 062420 23:39 79 98 2420 23:34 74 98 20 23:29 72 98 20 23:24 77 98 20 23:19 78 122/75 98 062420 23:14 85 98 24 23:09 86 98 04/09/20 23:04 83 98 04/09/20 22:59 88 97 06/24/20 22:54 82 96 20 22:49 86 129/71 98 20 22:44 89 99 20 22:39 83 97 20 22:34 81 98 20 22:29 84 99 20 22:26 18 04/09/20 22:24 80 99 20 22:19 70 123/63 99 20 22:14 83 99 04/09/20 22:09 68 98 04/09/20 22:04 84 99 20 21:59 72 99 20 21:56 18 04/09/20 21:54 77 99 04/09/20 21:49 73 119/70 99 04/09/20 21:44 79 100 04/09/20 21:39 72 99 04/09/20 21:34 73 100 04/09/20 21:29 76 100 04/09/20 21:24 73 100 04/09/20 21:20 86 141/80 04/09/20 21:19 86 100 04/09/20 21:09 80 100 04/09/20 21:04 82 99 04/09/20 21:01 85 136/65 04/09/20 20:59 72 99 20 20:45 81 100 20 20:40 78 100 20 20:38 73 86 20 20:35 72 100 20 20:30 72 100 20 20:25 71 100 20 20:20 78 100 20 20:15 77 100 20 20:06 98.3 F 80 18 121/67 121/67 100 20 19:45 98.5 F 04/09/20 19:15 72 12 117/63 100 20 19:10 77 16 113/71 100 04/09/20 19:05 75 13 111/70 100 20 19:00 75 15 105/77 100 20 18:56 75 12 105/61 100 04/09/20 18:51 79 19 187/163 64 L 04/09/20 18:49 98.1 F 91 H 11 L 177/155 96 04/09/20 16:48 91 04/09/20 16:47 75 0 L 04/09/20 16:43 71 100 04/09/20 16:42 86 04/09/20 16:38 68 100 04/09/20 16:33 76 98 04/09/20 16:28 90 99 04/09/20 16:23 88 99 04/09/20 16:18 72 99 04/09/20 16:13 90 99 04/09/20 16:08 100 H 97 04/09/20 16:03 83 99 04/09/20 15:59 84 04/09/20 15:58 81 100 04/09/20 15:53 79 98 04/09/20 15:48 81 100 04/09/20 15:43 92 H 99 04/09/20 15:38 95 H 98 04/09/20 15:33 80 100 04/09/20 15:28 84 99 04/09/20 15:23 65 99 04/09/20 15:17 56 L 94 04/09/20 15:12 69 100 04/09/20 15:07 81 99 04/09/20 15:02 121 H 100 04/09/20 14:57 74 99 04/09/20 14:52 85 100 04/09/20 14:45 80 99 04/09/20 14:40 84 98 04/09/20 14:35 72 99 04/09/20 14:30 74 98 04/09/20 14:25 67 98 04/09/20 14:20 72 97 04/09/20 14:15 74 97 04/09/20 14:10 84 97 04/09/20 14:05 76 96 04/09/20 14:00 78 96 04/09/20 13:57 74 L 04/09/20 13:55 80 100 04/09/20 13:50 88 98 04/09/20 13:45 67 100 04/09/20 13:40 70 99 04/09/20 13:35 89 100 04/09/20 13:30 85 98 04/09/20 13:25 75 99 04/09/20 13:20 75 97 04/09/20 13:15 96 H 99 04/09/20 13:10 87 99 04/09/20 13:05 75 98 04/09/20 13:00 79 99 06/24/20 11:34 91 H 100 20 11:29 94 H 99 04/09/20 11:24 87 99 04/09/20 11:19 85 99 20 11:18 74 126/60 20 11:14 86 99 20 11:09 98 04/09/20 11:04 67 100 04/09/20 10:59 82 98 04/09/20 10:54 89 99 04/09/20 10:49 65 92 04/09/20 10:48 86 04/09/20 10:47 98.3 F 04/09/20 10:43 91 H 100 04/09/20 10:42 101 H 72 L 04/09/20 10:38 77 99 04/09/20 10:33 65 99 04/09/20 10:26 78 98 04/09/20 10:21 75 99 04/09/20 10:18 81 126/69 04/09/20 10:16 81 99 04/09/20 10:11 82 99 04/09/20 10:06 78 98 04/09/20 10:01 87 99 04/09/20 09:56 83 98 04/09/20 09:51 83 99 04/09/20 09:46 82 97 04/09/20 09:41 87 98 04/09/20 09:36 81 97 04/09/20 09:33 93 H 83 L 04/09/20 09:31 82 97 04/09/20 09:26 74 95 04/09/20 09:21 71 96 04/09/20 09:17 81 132/71 04/09/20 09:16 68 99 04/09/20 09:11 71 97 04/09/20 09:06 89 98 04/09/20 09:01 86 96 04/09/20 08:57 97.6 F 04/09/20 08:56 76 99 04/09/20 08:51 72 99 04/09/20 08:46 68 99 04/09/20 08:41 60 100 04/09/20 08:39 120 H 88 04/09/20 08:36 74 99 04/09/20 08:31 83 99 04/09/20 08:26 89 100 04/09/20 08:21 89 100 Intake and Output 04/09/20 04/10/20 04/10/20 23:59 07:59 15:59 Intake Total 1070.666 Output Total 800 600 Balance 270.666 -600 Intake: IV 1070.666 PITOCin/NS 30 UNIT/500ML 20.666 30 units In 500 ml @ 4 MILLIUNITS/MIN 4 mls/hr IV TITR GENE Rx#:[id number] Output: Urine 800 600 Indwelling Catheter 250 250 Void 150 350 Other: Total, Output Amount 150 100 Estimated Blood Loss 600 - Exam Lungs: Present: Normal air movement Abdomen: Present: soft. Absent: distention Uterus: Present: firm, fundal height below umbilicus. Absent: bogginess Extremities: Present: normal Incision: Present: dressed - Labs Labs: Abnormal lab results 04/09/20 Range/Units 10:42 RDW 12.9 L (13.2-15.2) %
[2020-04-10] MEDS: KETOROLAC 30 MG/1 ML INJ IV PRN (09:04)
--- NOTE | 2020-04-10 10:42 | Post Anesthesia Evaluation ---
- Post Anesthesia Evaluation Patient Participated: Yes Airway Patent: Yes Stable Respiratory Function: Yes Nausea/Vomiting: No Temp > 96.8F: Yes Pain Manageable: Yes Adequeate Hydration: Yes Anesthesia Complications: No Block Receding Appropriately: Yes Patient on Ventilator: No
[2020-04-10] MEDS: IBUPROFEN 600 MG TAB PO SCH ×2 (12:09→18:17)
[2020-04-10] MEDS: MAGNESIUM SULFATE 40GM/1000ML 40 GM/1,000 ML BAG IV SCH (13:31)
[2020-04-11] MEDS: oxyCODONE /ACETAMINOPHEN 5-325MG TAB PO PRN ×3 (02:58→22:13)
[2020-04-11] MEDS: IBUPROFEN 600 MG TAB PO SCH ×3 (05:57→20:20)
[2020-04-11] MEDS ORDERED: DIPHtheria,PERTUSSIS(ACELL),TETANUS VACCINE/PF 0.5 ML VIAL IM ONE (06:00)
--- NOTE | 2020-04-11 08:53 | Progress Note ---
Assessment and Plan - Patient Problems (1) Mild preeclampsia Current Visit: Yes Status: Acute Plan to address problem: Routine postoperative care Discharge home tomorrow Subjective - Subjective Date of service: 04/11/20 Principal diagnosis: s/p primary , preeclampsia Interval history: Postop day #2 status post a primary delivery for failed induction for preeclampsia. The patient was reports some lower abdominal cramping and discomfort. She is ambulating in room and has voided. She is tolerating regular diet. Patient reports: appetite normal, voiding normally, pain well controlled [place]: doing well Objective - Vital Signs Latest vital signs: Vital Signs Temp Pulse Resp BP BP Pulse Ox 04/11/20 08:20 97.5 F L 90 18 128/86 100 04/11/20 05:57 20 04/11/20 04:30 97 F L 78 18 122/74 04/11/20 02:58 18 04/11/20 00:00 98 F 77 16 132/87 04/10/20 21:45 98.7 F 89 18 145/88 100 04/10/20 21:08 96 H 99 04/10/20 21:07 83 143/85 04/10/20 21:03 98 H 100 04/10/20 20:58 71 96 20 20:53 78 96 20 20:48 75 96 20 20:43 78 96 04/10/20 20:38 77 96 20 20:33 72 97 04/10/20 20:28 86 98 20 20:23 81 98 04/10/20 20:18 93 H 99 04/10/20 20:13 80 98 04/10/20 20:08 102 H 99 20 20:07 93 H 133/67 04/10/20 20:03 88 97 20 19:58 91 H 97 04/10/20 19:53 85 97 20 19:48 86 98 20 19:43 87 98 20 19:38 95 H 99 20 19:33 92 H 98 04/10/20 19:28 87 98 20 19:23 90 98 04/10/20 19:18 86 99 04/10/20 19:13 95 H 98 06/25/20 19:08 93 H 98 06/25/20 19:07 81 131/74 0620 19:05 98.4 F 18 04/10/20 19:03 92 H 98 20 18:58 84 98 20 18:53 92 H 97 20 18:48 85 99 20 18:43 87 99 20 18:38 80 98 20 18:33 94 H 99 20 18:28 89 98 20 18:23 87 99 04/10/20 18:18 79 99 20 18:13 87 99 20 18:08 85 98 20 18:07 83 128/90 04/10/20 18:03 87 98 20 17:30 91 H 99 20 17:25 90 97 20 17:20 92 H 98 20 17:15 84 99 04/10/20 17:10 92 H 97 04/10/20 17:07 88 134/78 04/10/20 17:05 101 H 98 04/10/20 17:00 92 H 99 20 16:55 89 99 20 16:50 90 98 20 16:45 97 H 99 04/10/20 16:40 94 H 99 20 16:35 92 H 98 04/10/20 16:30 95 H 99 20 16:25 89 98 20 16:20 86 99 20 16:15 90 99 20 16:10 91 H 99 20 16:07 97.6 F 84 16 136/83 136/83 20 16:05 96 H 98 04/10/20 16:00 95 H 98 04/10/20 15:55 90 99 04/10/20 15:50 96 H 98 04/10/20 15:45 86 99 25/20 15:40 95 H 99 04/10/20 15:35 86 98 /25/20 15:30 91 H 99 04/10/20 15:25 88 97 25/20 15:20 85 99 25/20 15:15 94 H 97 04/10/20 15:10 94 H 98 04/10/20 15:08 88 143/97 04/10/20 15:05 93 H 99 04/10/20 15:00 88 99 04/10/20 14:55 91 H 99 04/10/20 14:50 99 H 99 04/10/20 14:45 90 99 04/10/20 14:40 93 H 98 04/10/20 14:35 90 98 04/10/20 14:30 93 H 99 04/10/20 14:25 96 H 99 04/10/20 14:20 100 H 99 04/10/20 14:15 91 H 99 04/10/20 14:10 99 H 99 04/10/20 14:08 98 H 143/68 04/10/20 14:05 94 H 99 04/10/20 14:00 91 H 99 04/10/20 13:55 98 H 99 04/10/20 13:50 98 H 99 04/10/20 13:45 96 H 98 04/10/20 13:40 100 H 99 04/10/20 13:35 100 H 98 04/10/20 13:30 100 H 99 04/10/20 13:25 103 H 98 04/10/20 13:20 101 H 99 04/10/20 13:15 93 H 99 04/10/20 13:07 105 H 140/84 94 04/10/20 13:03 98 H 98 04/10/20 12:57 101 H 98 04/10/20 12:52 97 H 99 04/10/20 12:47 96 H 99 04/10/20 12:42 95 H 100 04/10/20 12:37 93 H 99 04/10/20 12:32 96 H 98 04/10/20 12:27 92 H 98 04/10/20 12:22 93 H 98 04/10/20 12:17 93 H 99 04/10/20 12:12 98 H 98 04/10/20 12:07 98.1 F 98 H 16 142/79 142/79 96 04/10/20 12:02 96 H 99 04/10/20 11:57 101 H 99 04/10/20 11:54 16 04/10/20 11:52 107 H 99 04/10/20 11:47 97 H 97 04/10/20 11:42 95 H 98 04/10/20 11:37 96 H 98 04/10/20 11:32 100 H 98 04/10/20 11:27 99 H 98 04/10/20 11:22 95 H 98 04/10/20 11:17 95 H 99 04/10/20 11:12 96 H 98 04/10/20 11:07 91 H 129/59 96 04/10/20 11:02 103 H 98 04/10/20 10:57 100 H 98 04/10/20 10:52 90 98 04/10/20 10:47 98 H 98 04/10/20 10:42 101 H 98 04/10/20 10:37 105 H 98 04/10/20 10:32 95 H 98 04/10/20 10:27 93 H 98 04/10/20 10:22 107 H 99 04/10/20 10:16 109 H 99 04/10/20 10:11 107 H 99 04/10/20 10:07 105 H 140/93 04/10/20 10:06 100 H 99 04/10/20 10:01 105 H 99 04/10/20 09:56 101 H 99 04/10/20 09:51 92 H 99 04/10/20 09:46 91 H 99 04/10/20 09:41 92 H 99 04/10/20 09:36 92 H 99 04/10/20 09:31 103 H 99 04/10/20 09:26 97 H 99 04/10/20 09:21 92 H 98 04/10/20 09:16 98 H 100 04/10/20 09:11 89 99 04/10/20 09:07 87 129/78 04/10/20 09:06 98 H 98 04/10/20 09:01 99 H 99 04/10/20 08:56 85 98 Intake and Output 04/10/20 04/11/20 04/11/20 22:59 06:59 14:59 Intake Total 850 Output Total 350 600 Balance 500 -600 Intake: Oral 850 Output: Urine 350 600 Indwelling Catheter 350 Void 600 Other: Total, Intake Amount 850 Total, Output Amount 125 600 # Voids Void 1
[2020-04-12] MEDS: IBUPROFEN 600 MG TAB PO SCH ×3 (05:24→12:24)
--- NOTE | 2020-04-12 09:47 | Progress Note ---
Assessment and Plan A: POD3 s/p LTCS Preeclampsia, s/p mag sulfate Vital signs stable P: Discharge to home today Subjective - Subjective Date of service: 04/12/20 Principal diagnosis: s/p primary , preeclampsia Interval history: POD3 s/p primary for failed induction of labor. S/p magnesium sulfate for preeclampsia. Patient reports: appetite normal, voiding normally, pain well controlled, flatus, ambulating normally : doing well, nursing well Objective - Vital Signs Latest vital signs: Vital Signs Temp Pulse Resp BP Pulse Ox 04/12/20 07:49 98.4 F 79 18 116/72 99 04/12/20 00:33 98.9 F 87 20 127/74 98 04/11/20 22:13 18 04/11/20 21:20 18 04/11/20 20:20 18 04/11/20 16:28 98.6 F 20 145/81 Intake and Output 04/11/20 04/12/20 04/12/20 23:59 07:59 15:59 Intake Total 1600 240 240 Balance 1600 240 240 Intake: Oral 1600 240 240 Other: Total, Intake Amount 800 240 240 Voiding Method Toilet # Voids 1 Void 1 1 1 # Bowel Movements 1 - Exam Lungs: Present: Normal air movement Abdomen: Present: soft. Absent: distention Uterus: Present: firm, fundal height below umbilicus. Absent: bogginess Incision: Present: normal, dry, intact
--- NOTE | 2020-04-12 09:51 | Discharge Summary ---
Providers - Providers Date of Admission: 04/07/20 17:58 Date of discharge: 04/12/20 Attending physician: DARIN STEPHENSON Primary care physician: DARIN STEPHENSON Hospitalization Reason for admission: induction of labor (for preeclampsia with mild features), IUP at term Delivery: Procedure: primary low transverse Episiotomy: none Laceration: none Incision: normal, dry, intact complications: none Discharge diagnosis: IUP at term delivered Hospital course: Pt arrived for IOL secondary to mild preeclampsia. She received multiple cervical ripening agents and high dose Pitocin. Her cervix never dilated past 1.5 cm. She underwent a primary LTCS on hospital day 3. She received mag sulfate for seizure prophylaxis x24 hours. She met discharge criteria on POD3. Condition at discharge: Good Disposition: DC-01 TO HOME OR SELFCARE Plan - Discharge Medications Prescriptions: Ibuprofen [Motrin] 800 mg PO Q8HR PRN #60 tablet PRN Reason: Pain , Severe (7-10) oxyCODONE /ACETAMINOPHEN [Percocet 5/325] 1 tab PO Q6HR PRN #30 tablet PRN Reason: Pain - Provider Discharge Summary Activity: routine, no sex for 6 weeks, no heavy lifting 4 weeks, no strenuous exercise Diet: routine Instructions: routine Additional instructions: [] Smoking cessation referral if applicable(refer to patient education folder for contact #) [] Refer to [facility] Booklet Call your doctor immediately for: * Fever > 100.5 * Heavy vaginal bleeding ( >1 pad per hour) * Severe persistent headache * Shortness of breath * Reddened, hot, painful area to leg or breast * Drainage or odor from incision. * Keep incision clean and dry at all times and follow doctor's instructions regarding bathing/showering - Follow up plan Follow up: GAYLE SALINAS CNM [Advanced Practice Nurse] - 7 Days (Please call office to schedule appointment.) Forms: [facility] Discharge Summary
[2020-04-12] MEDS: oxyCODONE /ACETAMINOPHEN 5-325MG TAB PO PRN (12:24)
[2020-04-12 14:07] VITALS: BP 136/62
== END 2020-04-12 13:30 | disposition home or self-care (01) | DRG 766 ==
LOC: LD 15:08 → OBSVTOIN 17:58 → OB 04-10 22:14
PROVIDERS: ADMIT Obstetrics & Gynecology; ATTEND Obstetrics & Gynecology
PROC: 10D00Z1 Extraction of Products of Conception, Low, Open Approach (ICD-10-PCS; principal; 2020-04-09)
PROC: 10H07YZ Insertion of Other Device into Products of Conception, Via Natural or Artificial Opening (ICD-10-PCS; 2020-04-09)
PROC: 3E0234Z Introduction of Serum, Toxoid and Vaccine into Muscle, Percutaneous Approach (ICD-10-PCS; 2020-04-11)
DX: O14.04 Mild to moderate pre-eclampsia, complicating childbirth (principal); E66.9 Obesity, unspecified; O99.824 Streptococcus B carrier state complicating childbirth; O99.214 Obesity complicating childbirth; O61.9 Failed induction of labor, unspecified; Z37.0 Single live birth; Z3A.38 38 weeks gestation of pregnancy
CPT/HCPCS: 36415; 80053; 84550; 85014; 85018; 85027; 86850; 86900; 86901; 90471; 90715; G0378; G0379; J0290; J0595; J0690; J1170; J1885; J2405; J2590; J2765; J3475; J3490; J7120